=== PATIENT | female | born 1955 | race Asian ===

== ENCOUNTER 2016-10-30 10:01 | Outpatient (CLI) | payer BC, OTHER | END 2016-10-30 23:59 | DX: Z12.11 Encounter for screening for malignant neoplasm of colon (principal) ==

== ENCOUNTER 2017-09-10 11:43 | Outpatient (CLI) | payer BC, OTHER ==
[2017-09-10 19:23] LABS: HEMOGLOBIN A1C 0.65 g/dL
[2017-09-10 19:32] LABS: ALBUMIN/GLOBULIN RATIO 1.5 (1.0-2.2); BILIRUBIN,TOTAL 0.6 mg/dL (0.2-1.0); CALCIUM 8.6 mg/dL (8.5-10.3); CREATININE 0.5 mg/dL (0.4-1.0); POTASSIUM 3.7 mmol/L (3.5-5.0); TOTAL PROTEIN 6.9 g/dL (6.7-8.2)
== END 2017-09-10 11:44 | disposition home or self-care (01) ==
LOC: LAB.WCP 11:43
PROVIDERS: ATTEND Family Medicine
DX: E78.5 Hyperlipidemia, unspecified (principal); E11.9 Type 2 diabetes mellitus without complications
CPT/HCPCS: 36415; 80053; 82043; 83036

== ENCOUNTER 2023-12-24 08:00 | Outpatient (CLI) | payer MEDICARE, OTHER ==
[2023-12-24 18:14] LABS: FECAL OCCULT BLOOD (FIT) NEGATIVE (NEGATIVE)
== END 2023-12-24 23:59 | disposition home or self-care (01) ==
LOC: LAB.N 08:00
PROVIDERS: ATTEND Internal Medicine
DX: Z12.11 Encounter for screening for malignant neoplasm of colon (principal)
CPT/HCPCS: 82274